=== PATIENT | male | born 2000 | race Caucasian/White ===

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

== ENCOUNTER 2024-04-20 09:33 | Emergency (ER) | payer OTHER, SELFPAY ==
[~2024-04-20] VITALS: Ht 167.6 cm; Wt 174.4 kg
[~2024-04-20 09:33] MED LIST changes: -LISI10TA15 PO; +LISI10TA24 PO
[2024-04-20 11:36] LABS: BASO # 0.1 10^3/uL (0.0-0.2); BASO % 0.4 % (0.0-1.0); EOS # 0.1 10^3/uL (0.0-0.5); EOS % 0.8 % (0.0-3.0); HEMATOCRIT 50.1 % (42.0-52.0); LYMPH # 1.3 10^3/uL (1.5-5.0); LYMPH % 8.8 % (24.0-44.0); MEAN CORPUSCULAR HEMOGLOBIN 30.1 pg (27.0-33.0); MEAN CORPUSCULAR HGB CONC 33.9 g/dl (32.0-36.5); MEAN CORPUSCULAR VOLUME 88.7 fl (80.0-96.0); MONO % 6.9 % (2.0-8.0); NEUTROPHILS # 12.2 10^3/uL (1.5-8.5); NEUTROPHILS % 82.6 % (36.0-66.0); PLATELET COUNT, AUTOMATED 264 10^3/uL (150-450); RED BLOOD COUNT 5.65 10^6/uL (4.30-6.10); WHITE BLOOD COUNT 14.7 10^3/uL (4.0-10.0)
[2024-04-20 12:08] LABS: LIPASE 25 U/L (12-53)
[2024-04-20 12:10] LABS: ALBUMIN 3.9 G/DL (3.2-5.2); ALKALINE PHOSPHATASE 63 U/L (46-116); ALT/SGPT 103 U/L (7.0-40); AST/SGOT 36 U/L (<34); BILIRUBIN,DIRECT 0.2 MG/DL (<0.4); BILIRUBIN,TOTAL 0.6 MG/DL (0.3-1.2); BLOOD UREA NITROGEN 13 MG/DL (9-23); CARBON DIOXIDE LEVEL 28 MMOL/L (20-31); CHLORIDE LEVEL 105 MMOL/L (98-107); CREATININE FOR GFR 0.72 MG/DL (0.70-1.30); GLOMERULAR FILTRATION RATE > 60.0 (>60); GLUCOSE, FASTING 104 MG/DL (60-100); POTASSIUM SERUM 3.9 MMOL/L (3.5-5.1); SODIUM LEVEL 137 MMOL/L (136-145); TOTAL PROTEIN 7.4 G/DL (5.7-8.2)
[2024-04-20] MEDS: PIPERACILLIN/TAZOBACTAM SOD 3.375 GM in D5W MINI-BAG PLUS 50 ML IV ONE (14:14)
[2024-04-20] MEDS ORDERED: HOME MED LIST COMPLETE! XX SCH (14:55)
[2024-04-20] MEDS ORDERED: FLAG375C PO (15:00)
[2024-04-20] MEDS ORDERED: AMOX875T2 PO (15:00)
[2024-04-20 15:10] VITALS: BP 170/90; TEMP 98.3; O2SAT 98
== END 2024-04-20 15:17 | disposition home or self-care (01) ==
LOC: M ED 09:33
DX: K35.80 Unspecified acute appendicitis (principal); I10 Essential (primary) hypertension; Z79.2 Long term (current) use of antibiotics
CPT/HCPCS: 74176; 80048; 80076; 81001; 83690; 85025; 96365; 99284; J2543